=== PATIENT | female | born 1980 | race Caucasian/White ===

== ENCOUNTER 2022-05-17 05:23 | Day surgery (SDC) | payer OTHER ==
[2022-05-10 15:21] LABS: BASOPHILS % (AUTO) 0.6 % (0-1); EOSINOPHILS # (AUTO) 0.3 X10'3 (0-0.9); EOSINOPHILS % (AUTO) 5.6 % (0-6); LYMPHOCYTES # (AUTO) 1.5 X10'3 (1.1-4.8); LYMPHOCYTES % (AUTO) 32.4 % (21-51); MEAN CORPUSCULAR HEMOGLOBIN 27.5 PG (27.0-31.0); MEAN CORPUSCULAR HGB CONC 32.4 g/dL (33.0-36.5); MEAN CORPUSCULAR VOLUME 84.9 FL (78-98); MEAN PLATELET VOLUME 8.3 FL (7.4-10.4); MONOCYTES # (AUTO) 0.5 X10'3 (0-0.9); MONOCYTES % (AUTO) 10.6 % (2-12); NEUTROPHILS # (AUTO) 2.4 X10'3 (1.8-7.7); NEUTROPHILS % (AUTO) 50.8 % (42-75); PRE OP HEMATOCRIT 40.8 % (35.0-45.0); PRE OP HEMOGLOBIN 13.2 g/dL (12.0-16.0); PRE OP PLATELET COUNT 244 X10'3 (140-440); RED CELL DISTRIBUTION WIDTH 13.9 % (11.5-14.5)
[2022-05-10 15:34] LABS: ALBUMIN 3.6 G/DL (3.4-5.0); ALKALINE PHOSPHATASE 32 IU/L (46-116); BLOOD UREA NITROGEN 16 MG/DL (7-18); BUN/CREATININE RATIO 21.1 (6.6-38.0); CHLORIDE 107 MMOL/L (99-107); CREATININE 0.76 MG/DL (0.40-0.90); PRE OP ALT 39 U/L (30-65); PRE OP ANION GAP 8 (8-16); PRE OP AST 46 U/L (10-37); PRE OP BILIRUB, TOTAL 0.3 MG/DL (0.0-1.0); PRE OP GLUCOSE 84 MG/DL (70-104); PRE OP SODIUM 142 MMOL/L (135-145); TOTAL CARBON DIOXIDE 27.3 MMOL/L (24-32); TOTAL PROTEIN 7.2 G/DL (6.4-8.2); eGFR 84 ML/MIN
[2022-05-10 15:54] LABS: PRE OP POTASSIUM 3.3 MMOL/L (3.4-5.1)
[2022-05-10 15:55] LABS: HCG SERUM QL NEGATIVE
[~2022-05-17] VITALS: Ht 172.7 cm; Wt 115.4 kg
[2022-05-17] VITALS (10 sets, daily range): BP systolic 106–134; BP diastolic 45–87
[~2022-05-17 05:23] MED LIST: LEVO100T9 PO; ringers solution, lacted 1,000 ML IV SCH
[2022-05-17] MEDS ORDERED: famotidine 20mg tablet PO ONE (05:30)
[2022-05-17] MEDS ORDERED: ceFAZolin inj. 2,000 MG in dextrose 5%-water 100 ML IV ONE (05:30)
[2022-05-17] MEDS ORDERED: fentaNYL/PF 50MCG/1 ML 2ML syringe IV PRN (06:25)
[2022-05-17] MEDS ORDERED: morphine 2 MG/ML inj. syringe IV PRN (06:25)
[2022-05-17] MEDS ORDERED: hydrALAZINE 20mg/ml inj. IV PRN (06:25)
[2022-05-17] MEDS ORDERED: ringers solution, lacted 1,000 ML IV SCH (06:25)
[2022-05-17] MEDS ORDERED: ondansetron/PF 4mg/2ml inj IV PRN (06:25)
[2022-05-17] MEDS ORDERED: labetalol 20mg/4ml (5mg/ml) syringe IV PRN (06:25)
[2022-05-17 06:34] LABS: ISTAT CREATININE 0.9 mg/dL (0.6-1.1); ISTAT HGB 15.6 g/dl (12.0-16.0); ISTAT IONIZED CALCIUM 1.33 mmol/L (1.03-1.32); ISTAT K 3.9 mmol/L (3.5-5.1)
[2022-05-17] MEDS ORDERED: LIDOcaine 1% 30ml preserv. free vial ONE (06:38)
[2022-05-17] MEDS ORDERED: BUPIVAcaine 0.5% inj/PF 30 ML ONE ×2 (06:40→07:00)
[2022-05-17] MEDS ORDERED: BUPIVACAINE liposomal/PF 13.3 MG/ML vial IM ONE ×2 (07:00→08:15)
[2022-05-17] MEDS ORDERED: sugammadex 200mg/2ml injection IV ONE (07:14)
[2022-05-17] MEDS ORDERED: fentaNYL/PF 50MCG/1 ML 2ML syringe ONE (07:16)
[2022-05-17] MEDS ORDERED: midazolam 1 mg/ML 2ml injection ONE (07:16)
[2022-05-17] MEDS ORDERED: ondansetron/PF 4mg/2ml inj ONE (07:19)
[2022-05-17] MEDS ORDERED: dexamethasone sod phosphate 4mg/ml inj. ONE (07:19)
[2022-05-17] MEDS ORDERED: propofol inj 20 ML IV ONE (07:19)
[2022-05-17] MEDS ORDERED: rocuronium 10mg/ml inj IV ONE (07:19)
[2022-05-17] MEDS ORDERED: LIDOcaine 1%/PF 5ML 10 MG/ML VIAL ONE (07:19)
[2022-05-17] MEDS ORDERED: sevoflurane 250ml liquid IH ONE (07:33)
[2022-05-17] MEDS ORDERED: LIDOCAINE 1% w/preservative (10 MG/ML) inj. 10mL VIAL IJ ONE (08:13)
[2022-05-17] MEDS ORDERED: BUPIVAcaine 0.5% inj/PF 30 ml vial IJ ONE (08:14)
[2022-05-17] MEDS ORDERED: neostigmine methylsulfate 1 MG/ML 10ml vial ONE (09:03)
[2022-05-17] MEDS ORDERED: glycopyrrolate 0.2mg/ml inj ONE (09:04)
[2022-05-17] MEDS ORDERED: oxyCODONE/APAP 5-325mg tablet PO PRN (09:10)
--- NOTE | 2022-05-17 09:10 | NUR ---
Received from OR via [facility], accompanied by Anesthesiologist and report given by [facility] Anesthesiologist. PATIENT WAKING UP, SEVERE ABDOMINAL PAIN-WILL MEDICATE, V/S WNL, PIV 20G RIGHT HAND, DERMABONDED LAPS SITES CLOSED C/D/I TO ABDOMEN WITH ABDOMINAL BINDER. Addendum: 05/17/22 at 0989 by Johnie Porras RN Amended: Links added.
[2022-05-17] MEDS: morphine 4 MG/ML inj SYRINge IV PRN ×2 (09:16→09:39)
[2022-05-17] MEDS: fentaNYL/PF 50MCG/1 ML 2ML syringe IV PRN ×2 (09:22→09:29)
--- NOTE | 2022-05-17 10:40 | NUR ---
ALL DISCHARGE CRITERIA HAS BEEN MET. VSS, PAIN AT A TOLERABLE LEVEL, VOIDING AND ABLE TO SAFELY AMBULATE AND TRANSFER SELF. IV TAKEN OUT WITHOUT ANY COMPLICATIONS. ALL DISCHARGE INSTRUCTIONS COVERED WITH PATIENT AND ALL QUESTIONS ANSWERED. PATIENT TAKEN OUT VIA WHEELCHAIR WITH ALL BELONGINGS TO PERSONAL VEHICLE WHERE FAMILY DROVE PATIENT HOME. Addendum: 05/17/22 at 1043 by Johnie Porras RN Amended: Links added.
== END 2022-05-17 10:40 | disposition home or self-care (01) ==
LOC: PAS 05:23
PROVIDERS: ATTEND Surgery
DX: K42.0 Umbilical hernia with obstruction, without gangrene (principal); E06.3 Autoimmune thyroiditis; E66.9 Obesity, unspecified; Z68.38 Body mass index [BMI] 38.0-38.9, adult; F41.9 Anxiety disorder, unspecified; E03.9 Hypothyroidism, unspecified; Z87.891 Personal history of nicotine dependence; Z98.890 Other specified postprocedural states; Z79.899 Other long term (current) drug therapy
CPT/HCPCS: 36415; 49594; 64488; 80047; 80053; 84703; 85025; C1781; C9290; J0690; J1100; J2250; J2270; J2405; J2704; J2710; J3010; J3490; J7030; J7060; J7120; S0020; S2900; Z7506; Z7508; Z7512; A4215; A4618